=== PATIENT | female | born 1990 | race African-American/Black ===

== ENCOUNTER 2020-07-12 02:25 | Emergency (ER) | payer SELFPAY ==
[~2020-07-12] VITALS: Ht 172.7 cm; Wt 91.0 kg
[2020-07-12] MEDS ORDERED: NALOXONE HCL 1 MG/ML 2ML VIAL IV ONE (03:30)
[2020-07-12 03:43] VITALS: BP 129/81
== END 2020-07-12 04:16 | disposition home or self-care (01) ==
LOC: EDSEX 02:25 → ER 02:45
DX: T40.601A Poisoning by unspecified narcotics, accidental (unintentional), initial encounter (principal); F11.129 Opioid abuse with intoxication, unspecified; R53.83 Other fatigue; F10.129 Alcohol abuse with intoxication, unspecified; Y90.5 Blood alcohol level of 100-119 mg/100 ml; Y92.89 Other specified places as the place of occurrence of the external cause
CPT/HCPCS: 36415; 80320; 93005; 96374; 99284; J2310; G0480

== ENCOUNTER 2020-08-23 23:42 | Emergency (ER) | payer OTHER ==
[~2020-08-23] VITALS: Ht 175.3 cm; Wt 100.0 kg
[2020-08-24] MEDS ORDERED: KETOROLAC 30MG/ML VIAL IV ONE (00:45)
[2020-08-24] MEDS ORDERED: SODIUM CHLORIDE 0.9% 1,000 ML IV ONE (00:45)
[2020-08-24 00:55] LABS: BASOPHILS % 0.5 % (0.0-2.0); EOSINOPHILS % 1.4 % (0.0-5.0); HEMATOCRIT. 41.6 % (36.0-48.0); HEMOGLOBIN. 14.1 g/dL (12.0-16.0); LYMPHOCYTES % 29.9 % (20.0-50.0); MEAN CORPUSCULAR HEMOGLOBIN 32.1 pg (28.0-32.0); MEAN CORPUSCULAR VOLUME 94.8 fL (81.0-99.0); MEAN PLATELET VOLUME 8.3 fl (7.4-10.4); MONOCYTES % 7.7 % (2.0-8.0); NEUTROPHILS % 60.5 % (40.0-76.0); PLATELET 309 x1000/uL (130-400); RED BLOOD CELL COUNT 4.39 mill/uL (4.2-5.4); RED CELL DISTRIBUTION WIDTH 15.4 % (11.6-14.6)
[2020-08-24 01:01] LABS: CHLORIDE 104 mEq/L (98-107)
[2020-08-24 01:06] LABS: CLARITY URINE TURBID (CLEAR); KETONES URINE 2+ (NEGATIVE); LEUKOCYTE ESTERASE URINE 3+ (NEGATIVE); NITRITE URINE POSITIVE (NEGATIVE); OCCULT BLOOD URINE 3+ (NEGATIVE); PROTEIN URINE 3+ (NEGATIVE)
[2020-08-24 01:13] LABS: B-HCG QUANTITATIVE < 1 mIU/mL (<3); COLOR URINE BLOODY (YELLOW)
[2020-08-24 01:16] LABS: HCG SCREEN NEGATIVE
[2020-08-24] MEDS ORDERED: ONDANSETRON HCL 4MG/2ML INJ IV STA (03:38)
[2020-08-24] MEDS ORDERED: MORPHINE SULFATE 4 MG/ML CPJ (NOT FOR IM USE) IV STA (03:38)
[2020-08-24] MEDS ORDERED: CEFTRIAXONE 1 G PREMIX 50 ML IV ONE (03:45)
[2020-08-24] MEDS ORDERED: IOHEXOL-300 100 ML BOTTLE ONE (07:24)
[2020-08-24 11:00] VITALS: BP 140/82
== END 2020-08-24 11:20 | disposition short-term general hospital (02) ==
LOC: ER 23:42
DX: N93.8 Other specified abnormal uterine and vaginal bleeding (principal); N13.8 Other obstructive and reflux uropathy; N10 Acute pyelonephritis
CPT/HCPCS: 36415; 74177; 76830; 76856; 80053; 81003; 81025; 83690; 84702; 84703; 85025; 86850; 86900; 86901; 96361; 96365; 96366; 96375; 99285; J0696; J1885; J2270; J2405; J7030; Q9967